=== PATIENT | male | born 1955 | race Caucasian/White ===

== ENCOUNTER → 2021-09-30 13:15 | Outpatient (CLI) | payer MEDICARE, OTHER, SELFPAY ==
[2021-09-30 14:31] LABS: COVID19 -Nasal RAPID Negative (Negative)
== END ==
PROVIDERS: Visit Provider Family Medicine Sleep Medicine
DX: Z20.822 Contact with and (suspected) exposure to COVID-19 (principal)
CPT/HCPCS: 87635; C9803

== ENCOUNTER 2021-10-02 12:33 | Day surgery (SDC) | payer MEDICARE, OTHER, SELFPAY ==
--- NOTE | 2021-10-02 | PATH_ITS ---
[facility] Accession Number: [id number] No. of containers..05 Tissue . 01 Material submitted: . PART A: duodenum - 3RD PORTION DUODENUM BIOPSY PART B: stomach - ANTRUM BIOPSY PART C: esophagus, E-G Junction - GEJ BIOPSY; 12 OCLOCK PART D: esophagus, E-G Junction - GEJ BIOPSY AT 6 OCLOCK PART E: esophagus, E-G Junction - GEJ BIOPSY AT 9 OCLOCK . 02 Diagnosis: A. Duodenum, Third Portion, Biopsy: Duodenal mucosa with no diagnostic abnormality. Negative for active inflammation, features of sprue, dysplasia, or malignancy. . B. Stomach, Antrum, Biopsy: Antral mucosa with mild chronic gastritis. NO evidence of Helicobacter on H/E stain. Negative for intestinal metaplasia. Negative for dysplasia and malignancy. . C. Gastroesophageal Junction, 12 o'clock, Biopsy: Squamocolumnar junctional mucosa with no diagnostic abnormality. Negative for intestinal metaplasia. Negative for dysplasia and malignancy. . D. Gastroesophageal Junction, 6 o'clock, Biopsy: Squamocolumnar junctional mucosa with specialized intestinal metaplasia, consistent with Sky's esophagus. Negative for dysplasia and malignancy. . E. Gastroesophageal Junction, 9 o'clock, Biopsy: Squamous epithelium with no diagnostic abnormality. Intraepithelial eosinophils are not increased. Negative for dysplasia and malignancy. [facility] 10/08/2021 1651 Local . 02 Electronically signed: . Kath Hollingsworth MD, Pathologist NPI- [id number] . 01 Gross description: . Part A: 3RD PORTION DUODENUM BIOPSY: Received in formalin is 1 fragment(s) of garcia, soft tissue measuring 0.2 x 0.2 x 0.2 cm submitted entirely in 1 cassette(s) Part B: ANTRUM BIOPSY: Received in formalin is 1 fragment(s) of garcia, soft tissue measuring 0.3 x 0.2 x 0.2 cm submitted entirely in 1 cassette(s) Part C: GEJ BIOPSY; 12 OCLOCK: Received in formalin is 1 fragment(s) of garcia, soft tissue measuring 0.3 x 0.2 x 0.2 cm submitted entirely in 1 cassette(s) Part D: GEJ BIOPSY AT 6 OCLOCK: Received in formalin is 1 fragment(s) of garcia, soft tissue measuring 0.2 x 0.2 x 0.2 cm submitted entirely in 1 cassette(s) Part E: GEJ BIOPSY AT 9 OCLOCK: Received in formalin is 1 fragment(s) of garcia, soft tissue measuring 0.2 x 0.2 x 0.1 cm submitted entirely in 1 cassette(s) /[facility]CTOR[facility] 10/06/2021 2322 Local . 02 Pathologist provided ICD-10: K22.70 . 02 CPT . 162572, 233451, 148408, 350716, [id number] Specimen Comment: A courtesy copy of this report has been sent to [phone] Performed at: 01 [facility] [address] [id number] MD Jorge Contreras MD Phone: [phone] Performed at: 02 [facility] [address] [place], [place] [id number] MD Kath Hollingsworth MD Phone: [phone]
--- NOTE | 2021-10-02 12:05 | P.HP_ITS ---
History of Present Illness History of Present Illness Date Patient Seen: 10/02/21 Chief complaint: SDC Narrative: 66 year old male comes in today for consideration of a surveillance EGD. History of Sky's esophagus. There have been no upper GI symptoms suggesting disease such as reflux, hoarseness, dry cough, abdominal pain, anemia, or any other concerns. Overall health issues have been stable, including no major cardiac events for at least 6 weeks. PCP: Dr. Mack Past Medical History: Hemorrhoidectomy vasectomy Anemia, profound 2013, responsive to iron, recurrent, felt to be due to stromal tumor. 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 Treated adjuvant with Gleevec, intolerant due to rash. CT survey yearly x 5 years Family History: mother alzheimers 76 father leiomyosarcoma of prostate 62, smoker sister skin cancer PGF, DM II Social History: Lived in [place] 20 years. 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 Lives at home with . 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, malignant Hearing loss Herpes labialis Hyperlipidemia Raynauds disease Tinea corporis Tinnitus of both ears Surgical History H/O vasectomy History of hemorrhoidectomy Meds Home Medications and Allergies Home Medications Medication Instructions Recorded Confirmed Type Tums 500 500 mg PO DAILY 10/01/21 10/02/21 History Valtrex 1 g PO DAILY 10/01/21 10/01/21 History Vitamin C 1 tab PO DAILY 10/01/21 10/01/21 History Zyrtec 10 mg PO DAILY 10/01/21 10/01/21 History atorvastatin 10 mg PO DAILY 10/01/21 10/02/21 History betamethasone 0.05 % TOPICAL DAILY 10/01/21 10/01/21 History doxycycline monohydrate 100 mg PO DAILY 10/01/21 10/01/21 History famotidine 40 mg PO DAILY 10/01/21 10/02/21 History lutein 1 tab PO DAILY 10/01/21 10/01/21 History omeprazole 20 mg PO DAILY 10/01/21 10/02/21 History Allergies Allergy/AdvReac Type Severity Reaction Status Date / Time Penicillins Allergy Mild Rash Verified 10/02/21 13:08 ketoconazole AdvReac Mild Rash Verified 10/02/21 13:09 imatinib [From Gleevec] AdvReac Verified 10/02/21 13:08 Review of Systems Review of Systems Narrative: All remaining ROS were reviewed and negative except as addressed. Exam Narrative Exam Narrative: GENERAL: Alert and oriented, appearing stated age and in no acute distress. HEENT: Head normocephalic/atraumatic. Extraocular movements intact. LUNGS: Clear to ausculation bilaterally, no wheezes, rhonchi or rales. CV: Normal S1 and S2 with regular rate and rhythm, no audible murmurs, rubs or gallops. ABDOMEN: Soft, non-tender, non-distended, no organomegaly. Positive bowel sounds. EXTREMITIES: No clubbing, cyanosis, or edema. NEURO: Cranial nerves II through XII grossly intact, no focal deficits. PSYCH: Alert and oriented x 3. SKIN: No concerning lesions. Assessment & Plan Assessment & Plan narrative: 1. History of Sky's esophagus Plan for surveillance EGD. The nature and character of the procedure as well as anticipated results were discussed. The possibility of not completing the procedure was also discussed. Possible complications including aspiration pneumonia, bleeding, perforation and reaction to medications either for sedation or preparation and missed lesions were discussed. Questions were answered and proceeding to the EGD was elected. Informed consent signed. I sincerely appreciate the referral allowing me to participate in this patient's care. Please contact me with any questions or concerns.
--- NOTE | 2021-10-02 12:09 | PM.OP.COLON ---
Operative Date/Time/Diagnoses Date of procedure: 10/02/21 Procedure Notes Procedure in detail: ENDOSCOPIST: Stephanie Mack MD Sedation RN: Sedation start time: Sedation end time: PROCEDURE: Colonoscopy [] INDICATIONS: 1. Screening for colon cancer MEDICATION: Levsin 0.125 mg sublingual, incremental doses of Versed and fentanyl until appropriate level sedation achieved. ASA CLASS: 2 CECAL WITHDRAWAL TIME: [] COMPLICATIONS: None. EXTENT OF PROCEDURE: Cecum. QUALITY OF PREP: []Good with portions of liquid stool. PROCEDURE: Prior to insertion of the colonoscope, a digital rectal examination was accomplished with circumferential palpation of the distal rectal mucosa without significant findings being noted.[] The high-definition [] colonoscope was passed into the rectum in the usual fashion and advanced over to the cecum without difficulty. The ileocecal valve, appendiceal stoma, and medial wall all could be inspected and []no abnormalities were seen. ASCENDING COLON: J maneuver was produced in the cecum and the proximal folds of the ascending colon were carefully inspected to the hepatic flexure and []. As the colonoscope was withdrawn, care was taken to expose and inspect the haustral folds and no abnormalities were seen. [] HEPATIC FLEXURE: Normal, no polyps, diverticula or other abnormalities. [] TRANSVERSE COLON: Normal, no polyps, diverticula or other abnormalities. [] DESCENDING COLON: Normal, no polyps, diverticula or other abnormalities. [] SIGMOID COLON: Normal, no polyps, diverticula or other abnormalities. [] RECTUM: Normal. J maneuver was produced. There was no significant perianal disease. The J maneuver was broken. The remainder of the rectum was inspected and there was [] no external hemorrhoid disease. The scope was withdrawn. IMPRESSION: 1. [] PLAN: 1. [] The possibility of a missed lesion including a malignancy has been discussed with the patient previously. Potential alarm symptoms have been discussed and should be reported immediately.
[2021-10-02 12:48] VITALS: BP 146/86; PULSE 55; RESP 15; TEMP 36.7; O2SAT 100; BMI 27.3
[2021-10-02] MEDS: LACTATED RINGERS 1,000 ML 200 ML IV (13:13)
--- NOTE | 2021-10-02 14:27 | P.OP.EGD_ITS ---
Operative Date/Time/Diagnoses Date of procedure: 10/02/21 Procedure Notes SCOAP/Timeout: 2:37 p.m. Procedure in detail: ENDOSCOPIST: Stephanie Mack MD Sedation RN: Chay Mcconnell RN Sedation start time: 2:38 p.m. Sedation end time: 3:08 p.m. PROCEDURE: EGD with biopsy INDICATIONS: 1. History of Sky's esophagus MEDICATION: Incremental doses of Versed and fentanyl until an appropriate level of sedation was achieved. ASA Ratin DURATION OF PROCEDURE: 30minutes. COMPLICATIONS: None. LIMITATIONS: None EXTENT OF PROCEDURE: Third portion of the Duodenum. PROCEDURE: The high-definition gastroduodenoscope was introduced into the pos terior oropharynx under direct vision after Hurricaine spray, noted IV sedation, and proper informed consent. The esophagus was identified and intubated under direct visualization. The scope was quickly passed through the esophagus and into the fundus of the stomach. A clear fundal pool was aspirated. The scope was then advanced to the antrum and the pylorus was identified. The scope was passed through the pylorus into the second and third portions of the duodenum. No abnormalities were noted in the duodenum, duodenal bulb or pyloric channel, random biopsy taken x1. The antrum had mild superficial hyperemesis, targeted biopsy taken x1. J maneuver was produced. No abnormalities were noted of the proximal body, fundus or cardia. A small hiatal hernia was noted. Scope was broken out of the J maneuver and the remainder of the stomach was carefully inspected upon withdrawal and was normal. The stomach was carefully deflated of all air on withdrawal. The distal esophagus was carefully inspected and Z-line was noted to be intact, random biopsies taken at 12, 6, and 9 o'clock. The remainder of the esophagus was normal upon withdrawal. The larynx and vocal cords appeared to be unremarkable. IMPRESSION: 1. Antritis, mild 2. Small hiatal hernia PLAN: 1. Follow-up in clinic status post pathology results. The possibility of missed lesion including a malignancy was discussed prior with the patient. Potential alarm symptoms have been discussed and should be reported by the patient immediately.
[2021-10-02] MEDS: LIDOCAINE 4% SOLN 50 ML 20 ML TOP (14:35)
[2021-10-02] MEDS: fentaNYL 250 MCG/5 ML INJ IV (15:05)
[2021-10-02] MEDS: MIDAZOLAM 5 MG/5 ML VIAL IV (15:05)
[2021-10-02 15:13] VITALS: BP 135/72; PULSE 57; RESP 12; TEMP 36.4; O2SAT 94
--- NOTE | 2021-10-02 15:17 | SUR.PHASEI ---
Received to PACU after EGD with sedation. Report from URSZULA Marrero.
[2021-10-02 15:18] VITALS: BP 131/78; PULSE 50; RESP 12; O2SAT 96
[2021-10-02 15:23] VITALS: BP 131/80; PULSE 52; RESP 14; O2SAT 96
[2021-10-02 15:28] VITALS: BP 126/85; PULSE 48; RESP 18; O2SAT 96
[2021-10-02 15:29] VITALS: PULSE 48; RESP 16; O2SAT 96
== END 2021-10-02 15:47 | disposition home or self-care (01) ==
PROVIDERS: PCP Student in an Organized Health Care Education/Training Program; Referring Provider Student in an Organized Health Care Education/Training Program; Visit Provider Student in an Organized Health Care Education/Training Program
PROC: 0DJ08ZZ Inspection of Upper Intestinal Tract, Via Natural or Artificial Opening Endoscopic (ICD-10-PCS; CPT 43235; principal; 2021-10-02 13:45)
DX: K22.70 Barrett's esophagus without dysplasia (principal); K44.9 Diaphragmatic hernia without obstruction or gangrene; K29.50 Unspecified chronic gastritis without bleeding
CPT/HCPCS: 43239; J2250; J3010

== ENCOUNTER → 2021-12-30 08:16 | Outpatient (CLI) | payer MEDICARE, OTHER, SELFPAY ==
--- NOTE | 2021-12-30 | DI.RAD.S_ITS ---
PROCEDURE: XR CHEST 2V INDICATIONS: Unspecified chorioretinal inflammation, bilateral TECHNIQUE: 2 views of the chest were acquired. COMPARISON: None. FINDINGS: Surgical changes and devices: None. Lungs and pleura: Lungs are clear. No pleural effusions or pneumothorax. Mediastinum: Mediastinal contours are normal. Heart size is normal. Bones and chest wall: No suspicious bony abnormalities. Soft tissues appear unremarkable. IMPRESSION: No acute cardiopulmonary abnormality. Dictated by: Ronan Fatima M.D. on 12/30/2021 at 9:11 Approved by: Ronan Fatima M.D. on 12/30/2021 at 9:12
== END ==
PROVIDERS: Family Provider Student in an Organized Health Care Education/Training Program; PCP Student in an Organized Health Care Education/Training Program; Referring Provider Ophthalmology; Visit Provider Ophthalmology
DX: H30.93 Unspecified chorioretinal inflammation, bilateral (principal)
CPT/HCPCS: 71046

== ENCOUNTER → 2022-03-04 12:52 | Outpatient (CLI) | payer MEDICARE, OTHER, SELFPAY ==
--- NOTE | 2022-03-04 12:55 | DI.US.S_ITS ---
PROCEDURE: US ABDOMEN LIMITED INDICATIONS: Inflammatory liver disease, unspecified TECHNIQUE: Real-time scanning was performed of the abdominal and retroperitoneal organs, with image documentation. COMPARISON: None. FINDINGS: Liver: Liver is normal in size and homogeneous in echotexture. 3 x 7 x 5 mm echogenic focus is noted in anterior periphery of right hepatic lobe without internal vascularity. Gallbladder: There is no gallstone. No gallbladder wall thickening or pericholecystic fluid. No sonographic Anderson sign. Biliary ducts: Intrahepatic bile ducts are non-dilated. Extrahepatic bile duct caliber measures 5.5 mm. Normal is 6-7 mm or less in diameter, or 10 mm or less post-cholecystectomy. Pancreas: Visualized portions of the pancreas are sonographically normal. IMPRESSION: 1. Liver is normal in size and echotexture. Possible tiny hemangioma is seen in anterior periphery of right hepatic lobe measures 7 x 5 x 3 mm in size. 2. Normal appearing gallbladder. No biliary ductal dilatation. Dictated by: Jacob Hood M.D. on 03/04/2022 at 15:44 Approved by: Jacob Hood M.D. on 03/04/2022 at 15:46
== END ==
PROVIDERS: Family Provider Student in an Organized Health Care Education/Training Program; PCP Internal Medicine; Referring Provider Internal Medicine; Visit Provider Internal Medicine
DX: K75.9 Inflammatory liver disease, unspecified (principal)
CPT/HCPCS: 76705